=== PATIENT | female | born 1950 | race Caucasian/White ===

== ENCOUNTER → 2017-10-11 08:49 | Outpatient (CLI) | payer OTHER, SELFPAY ==
[2017-10-11 09:34] LABS: Add Manual Diff / Slide Review NO; Basophils Percent Auto 1.2 % (0-2); Eosinophils Percent Auto 4.3 % (2-4); Hemoglobin 12.6 g/dL (12.0-16.0); Lymphocytes Percent Auto 40.8 % (25-40); Mean Corpuscular HGB Conc 32.3 % (30-36); Mean Corpuscular Hemoglobin 26.1 PG (26-34); Monocytes Percent Auto 7.1 % (3-14); Neutrophils Absolute Auto 2700 /uL (3000-5900); Neutrophils Percent Auto 46.6 % (50-75); Platelet Count 383 X10^3/uL (150-400); Red Blood Cell Count 4.82 X10^6/uL (4.0-5.2); White Blood Cell Count 5.7 X10^3/uL (4.5-11.0)
[2017-10-11 09:58] LABS: Alanine Aminotransferase 27 IU/L (9-52); Albumin 4.3 g/dL (3.5-5.0); Albumin Globulin Ratio 1.2 (1.0-2.8); Alkaline Phosphatase 115 U/L (38-126); Aspartate Aminotransferase 23 IU/L (14-36); BUN Creatinine Ratio 21.3 (6-22); Bilirubin Total 0.3 mg/dL (0.2-1.3); Blood Urea Nitrogen 17 mg/dL (7-17); Calcium 9.6 mg/dL (8.4-10.2); Carbon Dioxide 27 mmol/L (22-32); Chloride 104 mmol/L (98-107); Estimated Glomerular Filt Rate > 60.0 mL/min (>60); Globulin 3.5 g/dL (1.7-4.1); Glucose 96 mg/dL (80-110); HEMOLYSIS < 15 (0-50); Potassium 4.1 mmol/L (3.4-5.1); Sodium 144 mmol/L (137-145); Total Protein 7.8 g/dL (6.3-8.2)
== END ==
PROVIDERS: PCP Physician Assistant; Visit Provider Physician Assistant
DX: R79.9 Abnormal finding of blood chemistry, unspecified (principal)
CPT/HCPCS: 36415; 80053; 85025

== ENCOUNTER → 2017-12-07 07:08 | Outpatient (CLI) | payer MEDICARE, OTHER, SELFPAY ==
[2017-12-07 07:44] LABS: Add Manual Diff / Slide Review NO; Eosinophils Percent Auto 4.3 % (2-4); Hematocrit 39.9 % (36-46); Hemoglobin 12.9 g/dL (12.0-16.0); Lymphocytes Percent Auto 42.4 % (25-40); Mean Corpuscular HGB Conc 32.4 % (30-36); Mean Corpuscular Hemoglobin 26.2 PG (26-34); Monocytes Percent Auto 6.7 % (3-14); Neutrophils Absolute Auto 2700 /uL (3000-5900); Neutrophils Percent Auto 45.6 % (50-75); Platelet Count 347 X10^3/uL (150-400); Red Blood Cell Count 4.93 X10^6/uL (4.0-5.2); Red Cell Distribution Width 20.2 % (11.6-14.8)
[2017-12-07 07:58] LABS: Alanine Aminotransferase 24 IU/L (9-52); Albumin 4.5 g/dL (3.5-5.0); Albumin Globulin Ratio 1.5 (1.0-2.8); Alkaline Phosphatase 113 U/L (38-126); Aspartate Aminotransferase 22 IU/L (14-36); BUN Creatinine Ratio 23.3 (6-22); Bilirubin Total 0.4 mg/dL (0.2-1.3); Blood Urea Nitrogen 21 mg/dL (7-17); Calcium 9.7 mg/dL (8.4-10.2); Carbon Dioxide 31 mmol/L (22-32); Chloride 103 mmol/L (98-107); Estimated Glomerular Filt Rate > 60.0 mL/min (>60); Globulin 3.1 g/dL (1.7-4.1); Glucose 100 mg/dL (80-110); HEMOLYSIS < 15 (0-50); Potassium 4.3 mmol/L (3.4-5.1); Sodium 143 mmol/L (137-145); Total Protein 7.6 g/dL (6.3-8.2)
[2017-12-07 08:12] LABS: RBC Morphology Normal Morphology
[2017-12-07 08:20] LABS: Triiodothryronine T3 Uptake 32.6 % (23.5-40.5)
[2017-12-07 08:24] LABS: Cortisol AM (Before 10AM) 15.3 ug/dL (4.46-22.7)
[2017-12-07 09:03] LABS: Free T4, Direct Thyroxine 1.17 ng/dL (0.78-2.19)
[2017-12-07 13:25] LABS: Thyroid Stimulating Hormone 6.07 uIU/mL (0.47-4.68)
== END ==
PROVIDERS: PCP Physician Assistant; Visit Provider Physician Assistant
DX: R53.83 Other fatigue (principal); E03.9 Hypothyroidism, unspecified; E78.5 Hyperlipidemia, unspecified
CPT/HCPCS: 36415; 80053; 82533; 84439; 84443; 84479; 85025

== ENCOUNTER → 2018-08-24 08:55 | Outpatient (CLI) | payer OTHER, SELFPAY ==
[2018-08-24 09:46] LABS: Blood Urea Nitrogen 17 mg/dL (7-17); Calcium 9.2 mg/dL (8.4-10.2); Carbon Dioxide 28 mmol/L (22-32); Chloride 103 mmol/L (98-107); Cholesterol 222 mg/dL (140-199); Estimated Glomerular Filt Rate 55.6 mL/min (>60); Glucose 100 mg/dL (80-110); HDL Cholesterol 50 mg/dL (40-60); HEMOLYSIS < 15 (0-50); LDL Cholesterol Calculated 149 mg/dL (<100); Potassium 3.9 mmol/L (3.4-5.1); Sodium 140 mmol/L (137-145); Triglycerides 115 mg/dL (35-150)
[2018-08-24 10:22] LABS: TSH w/ Reflex to FT4 3.24 uIU/mL (0.47-4.68)
== END ==
PROVIDERS: PCP Physician Assistant; Visit Provider Internal Medicine
DX: Z13.1 Encounter for screening for diabetes mellitus (principal); E78.49 Other hyperlipidemia; E03.9 Hypothyroidism, unspecified
CPT/HCPCS: 36415; 80048; 80061; 84443

== ENCOUNTER → 2019-01-01 14:56 | Outpatient (CLI) | payer OTHER, SELFPAY ==
--- NOTE | 2019-01-01 | DI.MG.S_ITS ---
BILATERAL DIGITAL SCREENING MAMMOGRAM 3D/2D WITH CAD WITH AUGMENTATION: 01/01/2019 CLINICAL: Routine screening. Family history of breast cancer. Comparison is made to exams dated: 11/30/2012 mammogram and 01/08/2008 mammogram - [facility]. There are scattered fibroglandular elements in both breasts. Current study was also evaluated with a Computer Aided Detection (CAD) system. Bilateral breast implants are stable and intact. No significant masses, calcifications, or other findings are seen in either breast. There has been no significant interval change. IMPRESSION: NEGATIVE There is no mammographic evidence of malignancy. A 1 year screening mammogram is recommended. This exam was interpreted at Station ID: [id number]. NOTE: For mammograms, a report in lay terms will be sent to the patient. Approximately 15% of breast malignancies will not be visualized mammographically. In the management of a palpable breast mass, a negative mammogram must not discourage biopsy of a clinically suspicious lesion. Electronically Signed By: Tejinder inmna/huber:01/01/2019 17:26:53 letter sent: Normal Exam ACR BI-RADS Category 1: Negative [id number]
== END ==
PROVIDERS: PCP Physician Assistant; Visit Provider Internal Medicine
DX: Z12.31 Encounter for screening mammogram for malignant neoplasm of breast (principal); Z80.3 Family history of malignant neoplasm of breast
CPT/HCPCS: 77063; 77067

== ENCOUNTER 2019-02-21 10:13 | Day surgery (SDC) | payer OTHER, SELFPAY ==
--- NOTE | 2019-02-21 | PATH_ITS ---
[facility] Accession Number: [id number] . 01 Material submitted: . colon - SIGMOID POLYP X2 . 01 Clinical history: . SCREENING COLONOSCOPY . 02 Diagnosis: Sigmoid Colon, Polyps x2, Biopsies: Tubular adenoma. Hyperplastic polyp. MRV 02/22/2019 1415 Local . 02 Electronically signed: . Carmen Blount MD, Pathologist NPI- [id number] . 01 Gross description: . SIGMOID POLYP X2: Received in formalin are 2 fragment(s) of [place], soft tissue measuring 0.1 x 0.1 x 0.1 cm to 0.4 x 0.2 x 0.2 cm submitted entirely in 1 cassette(s) /DMC 02/22/2019 0005 Local . 02 Pathologist provided ICD-10: D12.5 . 02 CPT . 026129 Performed at: 01 [facility] [address], [place], [place] [id number] MD Isreal Wray MD Phone: [phone] Performed at: 02 [facility] [address] [place], [place] [id number] MD Carmen Blount MD Phone: [phone]
[2019-02-21 10:54] VITALS: BP 152/82; PULSE 69; RESP 15; TEMP 36.6; O2SAT 100; BMI 50.7
--- NOTE | 2019-02-21 12:25 | PM.HP.1 ---
History of Present Illness History of Present Illness Chief complaint: [id number] SCREENING COLONOSCOPY Patient History Family & Social History Social History: household members significant other Meds Home Medications and Allergies Home Medications Medication Instructions Recorded Confirmed Type levothyroxine 50 mcg PO DAILY 02/21/19 02/21/19 History Allergies Allergy/AdvReac Type Severity Reaction Status Date / Time Sulfa (Sulfonamide Allergy Severe Rash Verified 02/21/19 10:50 Antibiotics) [SULFA (SULFONAMIDE ANTIBIOTICS)] Review of Systems Review of Systems ROS Unobtainable: All systems reviewed & are unremarkable except as noted in HPI and below Exam Vital Signs (past 8 hours): - 02/21/19 10:54 Temperature 97.8 F Pulse Rate 69 Respiratory Rate 15 Blood Pressure 152/82 H Pulse Oximetry 100 Oxygen Delivery Method Room Air Narrative Exam Narrative: Awake alert oriented x3, no acute distress, lungs clear, heart regular rate and rhythm, abdomen nontender nondistended, no lower extremity edema Assessment & Plan Assessment & Plan narrative: Colon cancer screening for colonoscopy
--- NOTE | 2019-02-21 13:05 | PM.OP.ENDO ---
Operative Date/Time/Diagnoses Date of procedure: 02/21/19 Procedure & Clinicians Study performed: Colonoscopy with snare polypectomy Moderate conscious sedation was administered by the endoscopy nurse and supervised by the endoscopist. The following parameters were monitored: Oxygen saturation, heart rate, blood pressure, and response to care. Sedation: 6 mg midazolam, 150 mcg fentanyl Same procedure as scheduled: Yes Indications: Colon cancer screening. Date of last colonoscopy unknown. Procedure Notes Procedure in detail: Prior to the procedure, history and physical was performed, and patient medications and allergies were reviewed. Preprocedure nursing history and assessment was reviewed. Patient identification and proposed procedure were verified by the physician and nurse in the procedure room. The physical status of the patient was reassessed after the procedure. After informed consent was obtained including risks, benefits, and alternatives, the scope was passed under direct vision. Throughout the procedure, the patient's blood pressure, pulse, and oxygen saturations were monitored continuously. The colonoscope was introduced through the anus and advanced to the cecum as identified by the appendiceal orifice and ileocecal valve. The patient tolerated the procedure well. Bowel prep was deemed adequate to detect polyps greater than 5 mm. FAVIOLA and perianal examinations unremarkable. Retroflexion in the rectum revealed grade 1 internal hemorrhoids. Multiple small and medium mouthed diverticula noted in the sigmoid colon Two sessile polyps measuring 3-4 mm were removed from the sigmoid colon with a cold snare and retrieved Impression: Internal hemorrhoids Sigmoid colon diverticulosis Two 3 -4 mm polyps removed from the sigmoid colon Sedation minutes: 31 Complications: other (EBL minimal. No complications) Post-procedure Plan for aftercare: Follow-up pathology results Repeat colonoscopy at a date to be determined based on pathology results Resume home medications High fiber diet Discharge home with escort when discharge criteria met
[2019-02-21] MEDS: MIDAZOLAM 5 MG/5 ML VIAL IV (13:06)
[2019-02-21] MEDS: fentaNYL 250 MCG/5 ML INJ IV (13:07)
[2019-02-21 13:09] VITALS: BP 121/73; PULSE 77; RESP 17; TEMP 36.9; O2SAT 98
[2019-02-21 13:14] VITALS: BP 115/75; PULSE 80; RESP 15; O2SAT 99
--- NOTE | 2019-02-21 13:17 | SUR.PHASEI ---
Phase I post procedure note: Patient arrive to PACU via stretcher at 1309. Drowsy but awake. VSS, O2 Sat WNL On RA. No complaints of pain. Abdomen soft. tolerating po without nausea. continue with plan of care.
[2019-02-21 13:30] VITALS: BP 128/75; PULSE 77; RESP 15; TEMP 36.9; O2SAT 99
== END 2019-02-21 13:45 | disposition home or self-care (01) ==
PROVIDERS: PCP Physician Assistant; Visit Provider Internal Medicine
PROC: 0DJD8ZZ Inspection of Lower Intestinal Tract, Via Natural or Artificial Opening Endoscopic (ICD-10-PCS; CPT 45378; principal; 2019-02-21 11:30)
DX: Z12.11 Encounter for screening for malignant neoplasm of colon (principal); K57.30 Diverticulosis of large intestine without perforation or abscess without bleeding; K64.0 First degree hemorrhoids; D12.5 Benign neoplasm of sigmoid colon
CPT/HCPCS: 45385; J2250; J3010

== ENCOUNTER → 2020-02-12 15:24 | Outpatient (ROUT) | payer OTHER, SELFPAY | PROVIDERS: PCP Physician Assistant; Visit Provider Physician Assistant | DX: R39.9 Unspecified symptoms and signs involving the genitourinary system (principal) | CPT/HCPCS: 87086 ==

== ENCOUNTER → 2020-04-02 08:44 | Outpatient (CLI) | payer OTHER, SELFPAY ==
[2020-04-02 08:52] LABS: Bacteria Urine None Seen; RBC Urine None Seen (0-5/HPF)
[2020-04-02 09:50] LABS: Add Manual Diff / Slide Review NO; Basophils Absolute Auto 100 /uL (0-100); Basophils Percent Auto 0.9 % (0-2); Eosinophils Absolute Auto 200 /uL (0-450); Eosinophils Percent Auto 3.1 % (2-4); Hematocrit 46.1 % (36-46); Hemoglobin 15.4 g/dL (12.0-16.0); Lymphocytes Absolute Auto 2400 /uL (1100-4500); Lymphocytes Percent Auto 37.7 % (25-40); Mean Corpuscular HGB Conc 33.4 % (30-36); Mean Corpuscular Hemoglobin 30.5 PG (26-34); Mean Corpuscular Volume 91.2 fL (80-100); Monocytes Absolute Auto 300 /uL (0-900); Monocytes Percent Auto 5.3 % (3-14); Neutrophils Absolute Auto 3400 /uL (1500-7000); Platelet Count 336 X10^3/uL (150-400); Red Blood Cell Count 5.05 X10^6/uL (4.0-5.2); Red Cell Distribution Width 15.4 % (11.6-14.8); White Blood Cell Count 6.4 X10^3/uL (4.5-11.0)
[2020-04-02 09:58] LABS: Appearance Urine UA CLEAR; Bilirubin Urine UA NEGATIVE (NEGATIVE); Color Urine UA YELLOW; Glucose Urine UA NEGATIVE (Negative); Ketones Urine UA NEGATIVE (NEGATIVE); Leukocyte Esterase Urine UA TRACE (NEGATIVE); Nitrite Urine UA NEGATIVE (Negative); Occult Blood Urine UA NEGATIVE (Negative); Protein Urine UA NEGATIVE (Negative); Urobilinogen Urine UA 0.2 E.U./dL (0.2)
[2020-04-02 10:02] LABS: pH Urine UA 6.5 (4.5-8.0)
[2020-04-02 10:04] LABS: Culture Indicated Urine Specimen Cultured; WBC Urine 5-10/HPF (0-5/HPF)
[2020-04-02 10:09] LABS: Alanine Aminotransferase 18 IU/L (<35); Albumin 4.5 g/dL (3.5-5.0); Albumin Globulin Ratio 1.4 (1.0-2.8); Alkaline Phosphatase 92 U/L (38-126); Aspartate Aminotransferase 24 IU/L (14-36); BUN Creatinine Ratio 16.3 (6-22); Bilirubin Total 0.7 mg/dL (0.2-1.3); Blood Urea Nitrogen 15 mg/dL (7-17); Calcium 9.6 mg/dL (8.4-10.2); Carbon Dioxide 33 mmol/L (22-32); Chloride 103 mmol/L (98-107); Cholesterol 229 mg/dL (140-199); Estimated Glomerular Filt Rate > 60.0 mL/min (>60); Globulin 3.3 g/dL (1.7-4.1); Glucose 94 mg/dL (80-110); HDL Cholesterol 54 mg/dL (40-60); HEMOLYSIS < 15 (0-50); LDL Cholesterol Calculated 151 mg/dL (<100); Potassium 4.2 mmol/L (3.4-5.1); Sodium 141 mmol/L (137-145); Total Protein 7.8 g/dL (6.3-8.2); Triglycerides 118 mg/dL (35-150)
[2020-04-04 17:15] LABS: Hemoglobin A1C% w Est Avg Glu 6.1 % (4.0-6.0)
== END ==
PROVIDERS: PCP Physician Assistant; Referring Provider Physician Assistant; Visit Provider Physician Assistant
DX: E78.49 Other hyperlipidemia (principal); E03.9 Hypothyroidism, unspecified; R73.03 Prediabetes; R31.29 Other microscopic hematuria
CPT/HCPCS: 36415; 80053; 80061; 81001; 83036; 84443; 85025; 87086

== ENCOUNTER → 2020-06-25 13:12 | Outpatient (CLI) | payer OTHER, SELFPAY ==
--- NOTE | 2020-06-25 | DI.US.S_ITS ---
LIMITED ULTRASOUND OF LEFT BREAST: 06/25/2020 CLINICAL: Patient returns today to evaluate a focal asymmetry in the left breast. Comparison is made to exams dated: 06/25/2020 mammogram, 01/01/2019 mammogram, 11/30/2012 mammogram, and 01/08/2008 mammogram - [facility]. Color flow and real-time ultrasound of the left breast retroareolar were performed. Lawson scale images of the real-time examination were reviewed. No sonographic correlate to the nipple abnormality. No underlying suspicious mass or calcification. Incidental note made of a 3 mm avascular cystic focus too small to characterize in the 6:00 position adjacent to the nipple. IMPRESSION: SUSPICIOUS OF MALIGNANCY There is no sonographic correlate to the patient's nipple abnormality and no sonographic evidence of malignancy. Given patient history and description of the nipple abnormality, surgical consult for possible skin biopsy to exclude Paget Disease of the nipple is recommended as this is a clinical diagnosis. Upon resolution of this abnormality, return to screening mammography is recommended. Findings and recommendations were conveyed to the patient at time of exam. This exam was interpreted at Station ID: [id number]. Electronically Signed By: Charisma geiger/:06/26/2020 16:25:44 letter sent: Clinical Evaluation Ultrasound BI-RADS: 4a Low suspicion for malignancy
--- NOTE | 2020-06-25 | DI.MG.S_ITS ---
BILATERAL DIGITAL DIAGNOSTIC MAMMOGRAM 3D/2D WITH AUGMENTATION: 06/25/2020 CLINICAL: Left nipple irritation. Comparison is made to exams dated: 01/01/2019 mammogram, 11/30/2012 mammogram, and 01/08/2008 mammogram - [facility]. There are scattered fibroglandular elements in both breasts. No significant masses, calcifications, or other findings are seen in either breast. Bilateral subpectoral implants are present and intact. The left nipple is questionalbly larger and more dense than on prior studies. IMPRESSION: INCOMPLETE: NEEDS ADDITIONAL IMAGING EVALUATION Possible slight left nipple enlargement. Ultrasound is recommended. This was performed immediately following this exam. Otherwise stable bilateral mammograms with implants. This exam was interpreted at Station ID: [id number]. NOTE: For mammograms, a report in lay terms will be sent to the patient. Approximately 15% of breast malignancies will not be visualized mammographically. In the management of a palpable breast mass, a negative mammogram must not discourage biopsy of a clinically suspicious lesion. Electronically Signed By: Charisma geiger/:06/25/2020 14:10:18 ACR BI-RADS Category 0: Incomplete [id number]
== END ==
PROVIDERS: PCP Physician Assistant; Referring Provider Physician Assistant; Visit Provider Physician Assistant
DX: R92.8 Other abnormal and inconclusive findings on diagnostic imaging of breast (principal); N64.89 Other specified disorders of breast; T14.8XXA Other injury of unspecified body region, initial encounter
CPT/HCPCS: 76642; 77066; G0279

== ENCOUNTER → 2022-04-21 11:44 | Outpatient (CLI) | payer OTHER, SELFPAY ==
--- NOTE | 2022-04-21 11:48 | DI.RAD.S_ITS ---
PROCEDURE: XR HAND LT MIN 3V INDICATIONS: pain in hands TECHNIQUE: 3 views of the hand(s) acquired. COMPARISON: None. FINDINGS: Bones: No fractures or dislocations. Joint space narrowing and subchondral sclerosis throughout left hand and wrist joints are seen most notably at 1st CMC joint. No area of abnormal radiolucencies are noted to suggest erosion. Carpal bones are normally aligned. No suspicious bony lesions. Soft tissues: No suspicious soft tissue calcifications. IMPRESSION: 1. 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 No definite bony erosive changes are seen. No fracture or dislocation. Dictated by: Richard Estrella M.D. on 04/21/2022 at 13:36 Approved by: Richard Estrella M.D. on 04/21/2022 at 13:37
--- NOTE | 2022-04-21 11:48 | DI.RAD.S_ITS ---
PROCEDURE: XR HAND RT MIN 3V INDICATIONS: pain in hands TECHNIQUE: 3 views of the hand(s) acquired. COMPARISON: None. FINDINGS: Bones: No fractures or dislocations. Carpal bones are normally aligned. Significant joint space narrowing, subchondral fluid gross is and marginal osteophyte formation are noted throughout right hand and wrist joints most notably at 1st CMC joint and 2nd through 4th DIP joints. There is subtle radiolucencies involving 2nd and 3rd metacarpal heads as well as ulnar aspect of 2nd through 4th proximal phalangeal bases . No suspicious bony lesions. Soft tissues: No suspicious soft tissue calcifications. IMPRESSION: Osteoarthritic changes in right hand and wrist joints as above. Subtle radiolucency seen in 2nd and 3rd metacarpal heads, and 2nd through 4th proximal phalangeal bases concerning for erosion er secondary to inflammatory arthropathy. No fracture or dislocation. Dictated by: Richard Estrella M.D. on 04/21/2022 at 13:33 Approved by: Richard Estrella M.D. on 04/21/2022 at 13:36
== END ==
PROVIDERS: PCP Physician Assistant; Referring Provider Physician Assistant; Visit Provider Physician Assistant
DX: Z13.820 Encounter for screening for osteoporosis (principal); M85.851 Other specified disorders of bone density and structure, right thigh; Z78.0 Asymptomatic menopausal state; M79.641 Pain in right hand; M79.642 Pain in left hand; M13.0 Polyarthritis, unspecified; Z92.23 Personal history of estrogen therapy; Z90.710 Acquired absence of both cervix and uterus
CPT/HCPCS: 73130; 77080

== ENCOUNTER → 2022-05-14 07:54 | Outpatient (CLI) | payer OTHER, SELFPAY ==
--- NOTE | 2022-05-14 | DI.RAD.S_ITS ---
PROCEDURE: XR HIP W PEL IF DONE RT 2V INDICATIONS: right hip pain TECHNIQUE: AP pelvis with lateral view(s) of the right hip(s). COMPARISON: None. FINDINGS: Bones: No fractures or dislocations. Pelvic ring appears intact. No suspicious bony lesions. Mild degenerative changes of the bilateral hips. Soft tissues: The visualized bowel gas pattern is normal. No suspicious soft tissue calcifications. Multiple surgical clips noted in the bilateral pelvis. IMPRESSION: Right hip without acute fracture or dislocation. Mild degenerative changes of the bilateral hips. If there are persistent symptoms or clinical suspicion for pathology, then repeat radiographs or advanced imaging (CT or MRI) may be considered for further evaluation. Dictated by: Adal Watters M.D. on 05/14/2022 at 10:13 Approved by: Adal Watters M.D. on 05/14/2022 at 10:14
== END ==
PROVIDERS: PCP Physician Assistant; Referring Provider Physician Assistant; Visit Provider Physician Assistant
DX: M25.551 Pain in right hip (principal)
CPT/HCPCS: 73502

== ENCOUNTER → 2025-02-27 10:31 | Outpatient (CLI) | payer MEDICARE, SELFPAY ==
--- NOTE | 2025-02-27 10:34 | DI.RAD.S_ITS ---
PROCEDURE: XR DEXA AXIAL SKELETON
== END ==
LOC: RAD 10:32
PROVIDERS: PCP Internal Medicine; Referring Provider Nurse Practitioner; Visit Provider Nurse Practitioner
DX: M85.852 Other specified disorders of bone density and structure, left thigh (principal)
CPT/HCPCS: 77080